=== PATIENT | male | born 1940 | race Caucasian/White ===

== ENCOUNTER → 2020-03-10 09:48 | Outpatient (BNVA) | payer MEDICARE, OTHER, SELFPAY | PROVIDERS: Family Provider Family Medicine; PCP Family Medicine; Visit Provider Internal Medicine Cardiovascular Disease | DX: I25.700 Atherosclerosis of coronary artery bypass graft(s), unspecified, with unstable angina pectoris (principal) | CPT/HCPCS: 80048; 85025; 87635 ==

== ENCOUNTER 2020-03-16 07:49 | Observation (INO) | payer MEDICARE, BC, SELFPAY ==
[2020-03-16] VITALS (28 sets, daily range): BP systolic 107–204; BP diastolic 55–90; PULSE 51–91; RESP 13–32; TEMP 36.8; O2SAT 91–97; BMI 19.0
--- NOTE | 2020-03-16 07:30 | XACV_ITS ---
Exam Room: [facility] Ht: 173 cm Wt: 57 kg BSA: 1.64 m2 Gender: Male : 1940 Exam Priority: Routine Procedure(s): Procedure Description: Diagnostic procedure Procedure Description: PCI procedure Procedure Description: Left Heart Catheterization Procedure Description: Drug Eluting Coronary Stent Procedure Description: PTCA Diagnostic Findings LM has 0% stenosis. mLAD: Severe 100% stenosis, MARY KATE: 3 flow. Proximal Circumflex Coronary Artery: Severe 90% stenosis, MARY KATE: 2 flow. 1st OM: Moderate 70% stenosis, MARY KATE: 3 flow. pRCA to mRCA: Severe 100% stenosis, MARY KATE: 0 flow. Three grafts visualized. Aorta to dRCA collateralization. MCCALL to dLAD: patent. SVG to dCIRC: 100% stenosis, MARY KATE: 0 flow. SVG to RPAV: patent. Coronary angiography shows right dominance. PCI Status: Urgent PCI Indication: New Onset Angina <= 2 months Interventional Findings Proximal Circumflex Coronary Artery: 90% stenosis treated with AB TREK 2.50X8 RX BALLOON, MDFemi Bangura LILIAM 3.0X15 LAZARO, and MDT SAM EUPHORA RX 3.70V34YS BALLOON. 0% residual stenosis, MARY KATE: 3 flow. Conclusions There is severe coronary artery disease with three vessel disease. two grafts patent, and one graft diseased. Patient has prior CABG. Proximal Circumflex Coronary Artery was treated with two Balloon and Drug Eluting Stent. Recommendations 1-Return to inpatient for close monitoring and routine cath care 2-Risk factor modification for secondary prevention 3-Statin and aspirin 81 mg life--long, if tolerated 4-Patient was pre-loaded with 300 mg of Plavix, continue Plavix 75mg p.o. daily for at least one year. We will assess at the end of one year again to continue if further or not 5-Continue optimal medical management 6-Follow up with Dr. Pink in four weeks and your primary care in 10 days . Clinical Evaluation EBL: 5mL-10mL Procedural Details Procedure Consent Obtained. Admit Source: Out Patient. Pre-Procedure Time Out. Identified patient by full name and date of as verbalized by the patient/guarantor. Does the consent match the physician's order: Yes. Accurate & Complete Informed Consent: Yes. Inpatient/Outpatient History & Physical on Chart: Yes. If H&P is completed, is and addenduem needed: N/A; If yes, is the addendum complete: N/A. Visualize and Verify Site with Patient/Guarantor: N/A. Relevant Radiology Images available: N/A. Pre-op teaching completed and patient verbalized understanding. The risks, benefits, and alternatives of sedation and/or procedure were discussed by physician. The patient agrees to continue. Procedure started. Correct patient, site and procedure confirmed by cath team. PERRLA. Strong, equal hand commodity supervisor bilaterally. Lungs clear x 5 lobes. IV Site on Arrival: 18 gauge in the right anticubital. Pre Procedural Pulses: bilateral dorsalis pedis was 1+. Pre Procedural Pulses: bilateral posterior tibial was 2+. Pre Procedural Pulses: bilateral radial was 3+. Oxygen started at 2liters/min via nasal canula. bilateral groins was prepped with chloroprep then draped in the usual sterile fashion. Physician notified. Baseline sample Acquired. HR: 64 BPM. Physician arrived. Physician scrubbed in. Immediate Pre-Procedure Time Out. Correct Patient: Yes; Correct Procedure: Yes; Correct Site: Yes; Correct Patient Position: Yes; Correct Supplies: Yes; Dried Flammable Prep: Yes; Blood Products Available: N/A;. Lidocaine 1% infiltrated to the right groin. Arterial access obtained with micropuncture set. A 5 german FL4 catheter in over wire. Multiple views taken of left coronary artery. Catheter out. A 5 german FR4 catheter in over wire. Multiple views taken of right coronary artery. SCD to RCA patent. SVG to circumflex occluded. MCCALL to LAD visualized. 6 german XB 3.5 guide catheter was inserted over the wire. Guide catheter out. [place] guidewire was advanced through the guide catheter to lesion in the prox Circ. Inflation number : 1 A AB TREK 2.50X8 RX BALLOON was prepped and advanced across the Prox CX , then inflated to 18 SARITHA for 0:30 seconds. checking results. family updated. Balloon out. Inflation Number : 2 A MDT R LILIAM 3.0X15 LAZARO -Lot Number# [id number] exp date 10-01-2021 was prepped and advanced across the Prox CX. The stent was deployed at 14 SARITHA for 0:26 seconds. Stent balloon out over wire. Inflation number : 3 A MDT NC EUPHORA RX [id number] BALLOON was prepped and advanced across the Prox CX , then inflated to 16 SARITHA for 0:15 seconds. Inflation number: 4 The MDT NC EUPHORA RX [id number] BALLOON was reinflated across the Prox CX, to 16 SARITHA for 0:12 seconds. [place] repositioned to OM. wire out. [place] guidewire was advanced through the guide catheter to lesion in the OM. guide out. groin shot performed. [facility] Clinical Fraility Score: 3: Managing Well. 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 Chest Pain Symptom Assessment: Typical Angina Symptoms. Cardiovascular Instability: Yes, pain. PCI Indication: New Onset Angina. Post-op diagnosis: PCI to the prox circumflex. Sheath(s) sutured into position with 2-0 silk and sterile 4x4's and Op-site applied over the site. No oozing or signs and symptoms of hematoma noted. Post Procedure: Pulses reassessed and unchanged. ACT drawn. Results 357 seconds. Therapeutic limits - pre-heparin administration 90-150 seconds and monitoring heparin during a vascular procedure >250 seconds. PERRLA. Strong, equal hand commodity supervisor bilaterally. No VTE prophylaxis required. Medication's Wasted: Heparin = 2000 mg. Medication's Wasted: Lidocaine 1% = 2 mL. Medication's Wasted: Other = versed 1 mg. Medication's Wasted: Other = fentanyl 50 mg. Total IV fluids: 93.5 mL. Contrast type used: Visipaque 320 mgI/mL, 500 mL bottle. Contrast Material : Visipaque 263 ml. Complications: none. Estimated blood loss: 5mL-10mL. A Suture was successful obtaining hemostatsis at the Right Femoral artery insertion site. Procedure completed. Patient transferred by bed to ICU. Vital chart was stopped. Site: Right Femoral artery Sheath Size: 6 Fr Hemostasis Method: Suture Hemostasis Success: Successful Procedure Medications Start: 8:50 AM Stop: 8:50 AM Medication: Versed Amount: 1 mg Route: I.V. Start: 8:50 AM Stop: 8:50 AM Medication: Fentanyl Amount: 50 mcg Route: I.V. Start: 8:56 AM Stop: 8:56 AM Medication: Versed Amount: 1 mg Route: I.V. Start: 8:56 AM Stop: 8:56 AM Medication: Fentanyl Amount: 50 mcg Route: I.V. Start: 9:32 AM Stop: 9:32 AM Medication: Heparin Amount: 7000 units Route: I.V. Start: 9:34 AM Stop: 9:34 AM Medication: Versed Amount: 1 mg Route: I.V. Start: 9:34 AM Stop: 9:34 AM Medication: Fentanyl Amount: 50 mcg Route: I.V. Start: 9:39 AM Stop: 9:39 AM Medication: Aggrastat 12.5 mg/250 mL Amount: 29 ml Route: I.V. bolus Start: 9:42 AM Stop: 9:42 AM Medication: Aggrastat 12.5 mg/250 mL Amount: 10.4 ml/hr Route: I.V. sherry Burch, the attending physician, have reviewed and verified all procedure medications. Yes, all medications given per verbal order History/Risk Factors Hypertension: Yes Dyslipidemia: Yes Peripheral Arterial Disease (PAD): No Myocardial Infarction (AL): No Obesity: No Renal Disease: No Tobacco Use: Current/Recent(w/in 1 year) Prior Interventions PCI: Yes CABG: Yes Valve Surgery: No Date of PCI: 03/27/2007 Report Signatures Finalized by:Paulo Pink MD on 03/31/2020 1:56:19 AM
[2020-03-16] MEDS: diphenhydrAMINE 50 mg Capsule PO (07:48)
--- NOTE | 2020-03-16 10:09 | W.PM.OPSUD ---
Surgery/Procedure H&P Update DATE OF PROCEDURE: March 16, 2020 DATE H&P PERFORMED: 02/22/20 H&P UPDATE INFORMATION: I have reviewed H&P completed within last 30 days, I have examined patient prior to procedure and No changes to prior documentation PREOP DIAGNOSIS: Unstable angina PLANNED PROCEDURE: Operation Date: 03/16/20 08:30 Proposed Procedures p Cardiac Catheterization(Left) - Paulo Pink MD PATIENT REASSESSED PRIOR TO SEDATION, WITH NO CHANGE NOTED: Yes PHYSICAL EXAM: alert, oriented x 3, clear to auscultation bilaterally, regular rate & rhythm and operative site marked AIRWAY EVAL/ANESTHESIA PLAN: normal airway, Risks, benefits & alternatives of sedation and/or procedure discussed and Patient agrees to continue as planned
[2020-03-16] MEDS: atorvastatin 40 mg Tablet 80 MG PO (10:59)
[2020-03-16] MEDS: aspirin 81 mg EC Tablet PO (10:59)
[2020-03-16] MEDS: clopidogrel 300 mg Tablet PO (10:59)
--- NOTE | 2020-03-16 13:14 | PC.NURSE ---
Aggrastat Stopped Plavix given PO given at 1100, Aggrastat stopped at 1315.
[2020-03-16 13:28] LABS: Partial Thromboplastin Time > 250.0 SECONDS (23.9-36.7)
[2020-03-16] MEDS: isosorbide mononitrate ER 30 mg Tablet 15 MG PO (19:05)
[2020-03-16] MEDS: fentaNYL 50 mcg/mL INJ 2mL IVP (19:17)
--- NOTE | 2020-03-16 19:42 | PC.NURSE ---
sheath pulled from right groin; pressure held for 20 min per protocol a 5x8 cm hematoma noted. Patient tolerated poor; Patient moved leg very often and despite pain medication intervention patient contniued to have pain that would make him thrash is leg when pressure applied to hematoma. Dr dixon notified of hematoma formation instructions to monitor for increase in size.
[2020-03-16] MEDS: sodium chloride 0.9% 1,000 ML 100 ML IV (20:11)
--- NOTE | 2020-03-16 20:53 | PC.NURSE ---
patient having urinary frequency with out reports of burning or pain; patient is able to void, reports feeling like he is not emptying. Informed patient the most probable next step to assist with bladder emptying would more than likely be placement of stallings catherter. Patient states NO! i don note want that at all, I will be ok, will continue to monitor patient output and pain.
--- NOTE | 2020-03-17 00:32 | PC.NURSE ---
Patient has taken off Telemetry leads at this time when asked if this nurse could put them back patient stated no i took all them off educated patient that they need to be back on it was the rules and orders to monitor his heart while in the hospital Patient stated to hell with the rules I'm meant to break rules I'm 79 years old
--- NOTE | 2020-03-17 00:59 | PC.NURSE ---
patient got out of bed at this time; to use the urinal. patient maintained bed rest for 5.5 hours. patient remains safe. Patient assisted back to bed. patient did allow nurse to reattach telemetry monitoring. Hematoma has almost resolved and is soft. no bleeding or drainage noted to dressing.
[2020-03-17 02:15] VITALS: BP 130/68; PULSE 67; RESP 24; TEMP 36.7
--- NOTE | 2020-03-17 02:33 | PC.NURSE ---
Patient got out of bed again at this time to use the urinal. Patient educated on fall risk due to wires. Patient denies the need for assistance. This nurse maintained patient safety and bed alarm set.
[2020-03-17 04:59] VITALS: BP 136/57; PULSE 85; RESP 24
[2020-03-17] MEDS: sodium chloride 0.9% 1,000 ML 100 ML IV (06:28)
[2020-03-17 07:56] VITALS: BP 156/70; PULSE 69; RESP 18; TEMP 36.7; O2SAT 96
[2020-03-17] MEDS: isosorbide mononitrate ER 30 mg Tablet 15 MG PO (08:50)
[2020-03-17] MEDS: clopidogrel 75 mg Tablet PO (08:50)
[2020-03-17] MEDS: ALPRAZolam 0.25 mg Tablet PO (09:54)
--- NOTE | 2020-03-17 10:12 | PC.NURSE ---
bladder scan patient with frequent urination, 25ml-50ml at a time. Bladder scanned pt, shows 793ml. Patient refuses straight cath. Patient also considering AMA. Dr. Pink called and notified, will see patient in 30-45 minutes. Gave patient prn xanax, encouraged ambulation, urination techniques, and hospitalization.
--- NOTE | 2020-03-17 10:25 | PC.NURSE ---
and Daughter called and notified of patient's condition, potential discharge, urinary retention.
[2020-03-17 11:06] VITALS: BP 156/70; PULSE 69; RESP 18; TEMP 36.7; O2SAT 96
[2020-03-17 11:07] LABS: Anion Gap 17.8 (5-19); Blood Urea Nitrogen 13 mg/dL (8-23); Calcium 9.2 mg/dL (8.5-10.5); Carbon Dioxide 23 mmol/L (22-29); Chloride 102 mmol/L (98-107); Glucose 104 mg/dL (65-115); Osmolality Calculated 284 mOsm/kg (285-295); Potassium 3.8 mmol/L (3.5-5.1); Sodium 139 mmol/L (136-145)
--- NOTE | 2020-03-17 11:27 | P.SS_ITS ---
Short Stay Summary Providers Date of Admit/Discharge: 03/17/20 Attending Provider: Paulo Pink MD Primary Care Provider: Andry Dove MD Chief Complaint: left heart cath HPI History of Present Illness Stef Pulido is a 79 year old male past medical history significant for multivessel coronary artery disease status post CABG x3 MCCALL to LAD, SVG to RCA and SVG to obtuse marginal with chronic occlusion and history of stent to circumflex in 2006 after occlusion of the graft at an outside hospital underwent coronary angiogram for unstable angina. He was noted to have patent MCCALL to LAD, SVG to RCA however there was almost 99% ostial to proximal circumflex lesion. Since it is unprotected vessel it was treated with balloon angioplasty followed by drug-eluting stent placement postdilated with noncompliant balloon. Excellent angiographic result was noted. Obtuse marginal 1 had ostial 50 to 60% calcified stenosis thought to not to be significant. Overnight no event happened except mild hematoma which has been resolved. This morning patient has difficulty in urinating but he refused in and out catheter. He thinks that when he will go home in a more relaxed environment he will be able to urinate however he has initiated the urination. Patient is on Plavix we will continue Plavix for at least 1 year after that we will reassess it. I will check his BMP today. He will be discharged home. He is going to follow-up with us in the clinic in 7 days and then with me in 1 month. Home Meds/Allergies Home Medications and Allergies Home Medications Medication Instructions Recorded Confirmed Type aspirin 81 mg tablet,delayed 81 mg PO DAILY 11/23/19 03/16/20 History release atorvastatin 80 mg tablet 80 mg PO DAILY 11/23/19 03/16/20 History krill 500 mg-omega 3 115 mg-dha 30 1 cap PO DAILY 11/23/19 03/16/20 History mg-epa 64 hs-bjyizhs-[id number] capsule omega-3 fatty acids 1,000 mg 1,000 mg PO DAILY 11/23/19 03/16/20 History capsule Allergies Allergy/AdvReac Type Severity Reaction Status Date / Time No Known Allergies Allergy Unverified 03/16/20 08:27 PFSH Acute PFSH: Medical History Coronary artery disease Essential hypertension History of TIA (transient ischemic attack) Surgical History (Updated 02/26/20 @ 19:23 by Paulo Pink MD) H/O heart artery stent S/P CABG (coronary artery bypass graft) Family History Brother Stroke Father Cancer Esophageal and stomach CA Social History Smoking and tobacco status: current every day smoker cigarettes Packs smoked per day: 1 Years cigarettes smoked: 63 History of recent travel: No Vitals/I&O/Wt Last Vital Signs Temp 98.0 F 03/17/20 11:06 Pulse 69 03/17/20 11:06 Resp 18 03/17/20 11:06 BP 156/70 03/17/20 11:06 Pulse Ox 96 03/17/20 11:06 03/16/20 03/17/20 03/17/20 22:59 06:59 14:59 Intake Total 240 / 240 1000 / 1240 120 / 120 Output Total 275 / 575 600 / 1175 Balance -35 / -335 400 / 65 119 / 119 Weight last 48 hrs Weight 125 lb Physical Exam Narrative: EXAM NARRATIVE: GENERAL: Patient is alert, awake and oriented x3. NECK: No jugular vein distension. HEENT: No cyanosis. No icterus. No pallor. HEART: Regular S1 and S2. No murmur, rub or gallop. LUNGS: Clear to auscultate bilaterally. ABDOMEN: Soft, nontender and nondistended. Positive bowel sounds. No guarding, rebound or tenderness. CENTRAL NERVOUS SYSTEM: Grossly nonfocal. EXTREMITIES: Lower extremities without edema bilaterally. Right groin looks good no bruising at this moment no hematoma felt Const: COMMON NORMALS: alert Resp: COMMON NORMALS: clear to auscultation bilaterally AUSCULTATION: clear to auscultation bilaterally Neuro: SENSORIUM/ORIENTATION: Yes alert Hospital Course Discharge Summary: As above SSS Data Data Completed and Pending: Pending at discharge Category Date Time Status CLINICAL TRIAL COORDINATOR request for service Routin e Exams 03/16/20 07:30 Taken Diagnoses at Discharge Discharge Diagnosis (1) Coronary artery disease: Status: Acute (2) Essential hypertension: Status: Acute Discharge Plan Discharge Patient Disposition: Home, Self-Care Condition: Stable Prescriptions: Continued clopidogrel 75 mg tablet 75 mg PO DAILY 90 Days Qty: 90 RF: 3 aspirin [Adult Low Dose Aspirin] 81 mg tablet,delayed release (DR/EC) 81 mg PO DAILY RF: 0 omega-3 fatty acids 1,000 mg capsule 1,000 mg PO DAILY RF: 0 MegaRed [place]-3 Krill Oil [phone] mg capsule 1 cap PO DAILY RF: 0 atorvastatin 80 mg tablet 80 mg PO DAILY RF: 0 nitroglycerin [Nitrostat] 0.4 mg tablet, sublingual 0.4 mg SUBLINGUAL Q5M PRN (Reason: chest pain) Qty: 25 RF: 3 isosorbide mononitrate 30 mg tablet extended release 24 hr 15 mg PO BID Qty: 30 RF: 5 Discharge Orders: Discharge Order (Routine); Ordered 03/17/20 Ordered By: Paulo Pink Referrals: Paulo Pink MD [Physician] - 4-7 days (march 23, 2020 at 09:45 am here at [facility] [phone] will need wound check from cardiac cath procedure and will need lab test done at that time of appointment. , also scheduled follow up at [facility] with for the following date of August at 11:30a m ) Discharge Diet: Cardiac Discharge Activity: Increase activity as tolerated Patient Instructions: Left Heart Catheterization (DC), Right Heart Catheterization (DC), Coronary Angioplasty (DC), Urinary Retention in Men (GEN), Post Angiogram Home Care Instructions Activity Restrictions/Additional Instructions: No lifting of more than gallon of milk for the next 3 days. Follow-up with Shannon Cash in 7 days cardiology nurse practitioner and Dr. Pink in 1 month at [facility]. Attestations Medical Necessity Statement*: Post PCI patient stayed overnight. He was outpatient in bed Time Spent in Patient Care*: greater than 30 min Quality Metrics Clinical Quality Measures: During this hospital stay, did patient experience: None Coding Level of Care Code Established Pt Acute Human Factors Scientist for Chg Fwd Patient Type Established Exam Expanded Problem Focused Medical Decision Making Moderate Complexity Diagnoses Coronary artery disease I25.10 Essential hypertension I10
--- NOTE | 2020-03-17 11:42 | PC.NURSE ---
discharge instructions given to patiient. No further questions. Patient adamant to leave hospital without waiting for his ride to pick him up. IV removed. Patient refused wheelchair, ambulated to ED entrance accompanied by this nurse. Security notified due to age and current heat. Family called and notified, stated they will be here soon and will call me when they pick him up.
--- NOTE | 2020-03-18 12:58 | PC.RESP ---
Smoking Cessation information sent to patient.
== END 2020-03-17 11:35 | disposition home or self-care (01) ==
LOC: ICU 07:50
PROVIDERS: Admitting Provider Internal Medicine Cardiovascular Disease; PCP Family Medicine; Visit Provider Internal Medicine Cardiovascular Disease
DX: I25.10 Atherosclerotic heart disease of native coronary artery without angina pectoris (principal); I10 Essential (primary) hypertension; Z95.1 Presence of aortocoronary bypass graft; Z79.02 Long term (current) use of antithrombotics/antiplatelets; Z79.82 Long term (current) use of aspirin; Z86.73 Personal history of transient ischemic attack (TIA), and cerebral infarction without residual deficits; F17.210 Nicotine dependence, cigarettes, uncomplicated
CPT/HCPCS: 12345; 36415; 80048; 85347; 85730; 93455; 96360; 96361; C1725; C1769; C1874; C1887; C1894; C9600; G0378; J1644; J2250; J3010; J3246; J7030; Q0163; Q9967

== ENCOUNTER → 2020-03-23 10:41 | Outpatient (BNVA) | payer MEDICARE, OTHER, SELFPAY | PROVIDERS: PCP Family Medicine; Visit Provider Nurse Practitioner Family | DX: I25.10 Atherosclerotic heart disease of native coronary artery without angina pectoris (principal) | CPT/HCPCS: 80048 ==

== ENCOUNTER → 2021-03-30 12:35 | Outpatient (BNVA) | payer MEDICARE, OTHER, SELFPAY | PROVIDERS: PCP Family Medicine; Referring Provider Family Medicine; Visit Provider Nurse Practitioner | DX: R26.89 Other abnormalities of gait and mobility (principal); F17.210 Nicotine dependence, cigarettes, uncomplicated | CPT/HCPCS: 99203; 99204 ==